=== PATIENT | male | born 1950 | race Caucasian/White ===

== ENCOUNTER → 2021-01-01 16:08 | Outpatient (ROUT) | payer MEDICARE, OTHER, SELFPAY | PROVIDERS: Family Provider Family Medicine; PCP Family Medicine; Visit Provider Family Medicine | DX: L97.529 Non-pressure chronic ulcer of other part of left foot with unspecified severity (principal) | CPT/HCPCS: 87070; 87075; 87077; 87147; 87186; 87205 ==

== ENCOUNTER → 2021-01-02 10:21 | Outpatient (CLI) | payer MEDICARE, OTHER, SELFPAY ==
--- NOTE | 2021-01-02 | DI.RAD.S_ITS ---
PROCEDURE: XR TOE LT MIN 2V INDICATIONS: LEFT GREAT TOE ULCER TECHNIQUE: 3 views of the great toe(s) acquired. COMPARISON: None. FINDINGS: Bones: No fractures or dislocations. No suspicious bony lesions. There is a soft tissue ulceration near the tip of the great toe but no underlying osteomyelitis or foreign body. Soft tissues: No suspicious soft tissue densities. IMPRESSION: Soft tissue ulceration with swelling but no osteomyelitis or foreign body found. Dictated by: Javid Alves M.D. on 01/02/2021 at 12:06 Approved by: Javid Alves M.D. on 01/02/2021 at 12:07
== END ==
PROVIDERS: Family Provider Family Medicine; PCP Family Medicine; Referring Provider Family Medicine; Visit Provider Family Medicine
DX: L97.529 Non-pressure chronic ulcer of other part of left foot with unspecified severity (principal)
CPT/HCPCS: 73660

== ENCOUNTER → 2021-02-16 13:00 | Outpatient (CLI) | payer MEDICARE, OTHER, SELFPAY | PROVIDERS: Family Provider Family Medicine; PCP Family Medicine; Referring Provider Family Medicine; Visit Provider Nurse Practitioner Family | DX: G62.0 Drug-induced polyneuropathy (principal); L97.528 Non-pressure chronic ulcer of other part of left foot with other specified severity; L84 Corns and callosities; R23.4 Changes in skin texture; E11.622 Type 2 diabetes mellitus with other skin ulcer; I87.2 Venous insufficiency (chronic) (peripheral); Z85.71 Personal history of Hodgkin lymphoma | CPT/HCPCS: 11042; 87070; 87075; 87077; 87147; 87186; 87205; 99204; 99214 ==

== ENCOUNTER → 2021-02-21 16:46 | Outpatient (CLI) | payer MEDICARE, OTHER, SELFPAY ==
--- NOTE | 2021-02-21 | DI.MRI.S_ITS ---
PROCEDURE: MR FOOT LT WO/W CON INDICATIONS: rule out Osteomyelitis TECHNIQUE: Noncontrast coronal T1 spin echo and STIR, sagittal T1 spin echo with fat saturation and STIR, axial T1 spin echo and T2 fast spin echo with fat saturation. After the administration of contrast, axial/sagittal/coronal T1 spin echo with fat saturation through the left forefoot . COMPARISON: Located Within [facility], CR, XR TOE LT MIN 2V, 01/02/2021, 10:31. FINDINGS: Image quality: Excellent. Bones: The visualized bone marrow demonstrates normal signal on all sequences. The overlying cortex appears intact. No abnormal intraosseous enhancement. No definite focal osseous destruction or loss of marrow fat signal intensity on T1 weighted pulse sequences is seen underlying the area of ulceration at the plantar aspect of the distal great toe. Diffuse midfoot joint degeneration Soft tissues: Soft tissue edema and ulcerated appearance at the plantar aspect of the distal great toe. Dorsal forefoot subcutaneous edema also noted. IMPRESSION: No definite marrow signal changes to suggest osteomyelitis, in particular in the region of the ulcerated lesion at the plantar aspect of the distal great toe. Dictated by: Lamine Meehan M.D. on 02/22/2021 at 10:04 Approved by: Lamine Meehan M.D. on 02/22/2021 at 10:16
== END ==
PROVIDERS: Family Provider Family Medicine; PCP Family Medicine; Referring Provider Nurse Practitioner Family; Visit Provider Nurse Practitioner Family
DX: L08.9 Local infection of the skin and subcutaneous tissue, unspecified (principal); L97.522 Non-pressure chronic ulcer of other part of left foot with fat layer exposed
CPT/HCPCS: 73720

== ENCOUNTER → 2021-02-23 11:07 | Outpatient (CLI) | payer MEDICARE, OTHER, SELFPAY | PROVIDERS: Family Provider Family Medicine; PCP Family Medicine; Referring Provider Family Medicine; Visit Provider Nurse Practitioner Family | DX: G62.0 Drug-induced polyneuropathy (principal); L97.522 Non-pressure chronic ulcer of other part of left foot with fat layer exposed; L08.9 Local infection of the skin and subcutaneous tissue, unspecified; Z85.72 Personal history of non-Hodgkin lymphomas | CPT/HCPCS: 11042; 99212 ==

== ENCOUNTER → 2021-03-02 10:51 | Outpatient (CLI) | payer MEDICARE, OTHER, SELFPAY | PROVIDERS: Family Provider Family Medicine; PCP Family Medicine; Referring Provider Family Medicine; Visit Provider Nurse Practitioner Family | DX: G60.3 Idiopathic progressive neuropathy (principal); L97.522 Non-pressure chronic ulcer of other part of left foot with fat layer exposed; Z85.72 Personal history of non-Hodgkin lymphomas; R79.9 Abnormal finding of blood chemistry, unspecified; G62.0 Drug-induced polyneuropathy | CPT/HCPCS: 97597; 99213 ==

== ENCOUNTER → 2021-03-09 10:22 | Outpatient (CLI) | payer MEDICARE, OTHER, SELFPAY ==
[2021-03-09 11:47] LABS: Add Manual Diff / Slide Review NO; Basophils Absolute Auto 100 /uL (0-100); Basophils Percent Auto 0.7 % (0-2); Eosinophils Absolute Auto 100 /uL (0-450); Eosinophils Percent Auto 1.9 % (2-4); Hematocrit 33.4 % (41-53); Hemoglobin 11.2 g/dL (13.5-17.5); Lymphocytes Absolute Auto 1300 /uL (1100-4500); Lymphocytes Percent Auto 18.6 % (25-40); Mean Corpuscular HGB Conc 33.6 % (30-36); Mean Corpuscular Hemoglobin 34.8 PG (26-34); Mean Corpuscular Volume 103.5 fL (80-100); Monocytes Absolute Auto 900 /uL (0-900); Monocytes Percent Auto 12.4 % (3-14); Neutrophils Absolute Auto 4700 /uL (1500-7000); Neutrophils Percent Auto 66.4 % (50-75); Platelet Count 110 X10^3/uL (150-400); Red Blood Cell Count 3.23 X10^6/uL (4.5-5.9); Red Cell Distribution Width 16.2 % (11.6-14.8); White Blood Cell Count 7.1 X10^3/uL (4.5-11.0)
[2021-03-09 12:05] LABS: Erythrocyte Sedimentation Rate 74 MM/HR (0-15)
[2021-03-09 12:22] LABS: C-Reactive Protein Quant 13.7 mg/dL (<1.0)
== END ==
PROVIDERS: Family Provider Family Medicine; PCP Family Medicine; Referring Provider Family Medicine; Visit Provider Nurse Practitioner Family
DX: R79.82 Elevated C-reactive protein (CRP) (principal); R70.0 Elevated erythrocyte sedimentation rate; L08.9 Local infection of the skin and subcutaneous tissue, unspecified
CPT/HCPCS: 36415; 85025; 85651; 86140

== ENCOUNTER → 2021-03-09 10:22 | Outpatient (CLI) | payer MEDICARE, OTHER, SELFPAY | PROVIDERS: Family Provider Family Medicine; PCP Family Medicine; Referring Provider Family Medicine; Visit Provider Nurse Practitioner Family | DX: G62.0 Drug-induced polyneuropathy (principal); L97.521 Non-pressure chronic ulcer of other part of left foot limited to breakdown of skin; L08.9 Local infection of the skin and subcutaneous tissue, unspecified; R23.4 Changes in skin texture; L84 Corns and callosities; L53.8 Other specified erythematous conditions; R79.82 Elevated C-reactive protein (CRP); R70.0 Elevated erythrocyte sedimentation rate | CPT/HCPCS: 36415; 85025; 85651; 86140; 87070; 87077; 87147; 87186; 87205; 97597; 99213 ==

== ENCOUNTER → 2021-03-16 09:34 | Outpatient (CLI) | payer MEDICARE, OTHER, SELFPAY | PROVIDERS: Family Provider Family Medicine; PCP Family Medicine; Referring Provider Family Medicine; Visit Provider Nurse Practitioner Family | DX: G62.0 Drug-induced polyneuropathy (principal); L97.521 Non-pressure chronic ulcer of other part of left foot limited to breakdown of skin; L84 Corns and callosities | CPT/HCPCS: 97597; 99213 ==

== ENCOUNTER → 2021-04-02 14:28 | Outpatient (CLI) | payer MEDICARE, OTHER, SELFPAY | PROVIDERS: Family Provider Family Medicine; PCP Family Medicine; Referring Provider Family Medicine; Visit Provider Family Medicine | DX: G60.9 Hereditary and idiopathic neuropathy, unspecified (principal); L97.522 Non-pressure chronic ulcer of other part of left foot with fat layer exposed; Z85.72 Personal history of non-Hodgkin lymphomas; R79.9 Abnormal finding of blood chemistry, unspecified; R70.0 Elevated erythrocyte sedimentation rate; R79.82 Elevated C-reactive protein (CRP) | CPT/HCPCS: 11042; 87070; 87075; 87205; 99213 ==

== ENCOUNTER → 2021-04-09 13:22 | Outpatient (CLI) | payer MEDICARE, OTHER, SELFPAY | PROVIDERS: Family Provider Family Medicine; PCP Family Medicine; Referring Provider Family Medicine; Visit Provider Family Medicine | DX: G60.9 Hereditary and idiopathic neuropathy, unspecified (principal); L97.521 Non-pressure chronic ulcer of other part of left foot limited to breakdown of skin; L08.9 Local infection of the skin and subcutaneous tissue, unspecified; Z85.72 Personal history of non-Hodgkin lymphomas | CPT/HCPCS: 11042; 36415; 85025; 85651; 86140; 99213 ==

== ENCOUNTER → 2021-04-09 14:18 | Outpatient (CLI) | payer MEDICARE, OTHER, SELFPAY ==
[2021-04-09 15:22] LABS: Add Manual Diff / Slide Review NO; Basophils Absolute Auto 100 /uL (0-100); Basophils Percent Auto 0.7 % (0-2); Eosinophils Absolute Auto 100 /uL (0-450); Eosinophils Percent Auto 1.4 % (2-4); Hematocrit 35.3 % (41-53); Hemoglobin 11.6 g/dL (13.5-17.5); Lymphocytes Absolute Auto 1600 /uL (1100-4500); Mean Corpuscular HGB Conc 32.9 % (30-36); Mean Corpuscular Hemoglobin 34.1 PG (26-34); Mean Corpuscular Volume 103.6 fL (80-100); Monocytes Absolute Auto 900 /uL (0-900); Monocytes Percent Auto 13.3 % (3-14); Neutrophils Absolute Auto 4400 /uL (1500-7000); Neutrophils Percent Auto 62.6 % (50-75); Platelet Count 122 X10^3/uL (150-400); Red Cell Distribution Width 15.1 % (11.6-14.8); White Blood Cell Count 7.1 X10^3/uL (4.5-11.0)
[2021-04-09 15:47] LABS: C-Reactive Protein Quant 6.7 mg/dL (<1.0)
[2021-04-09 16:32] LABS: Erythrocyte Sedimentation Rate 66 MM/HR (0-15)
== END ==
PROVIDERS: Family Provider Family Medicine; PCP Family Medicine; Referring Provider Family Medicine; Visit Provider Family Medicine
DX: L08.9 Local infection of the skin and subcutaneous tissue, unspecified (principal)
CPT/HCPCS: 36415; 85025; 85651; 86140

== ENCOUNTER → 2021-04-16 14:23 | Outpatient (CLI) | payer MEDICARE, OTHER, SELFPAY | PROVIDERS: Family Provider Family Medicine; PCP Family Medicine; Referring Provider Family Medicine; Visit Provider Family Medicine | DX: G60.9 Hereditary and idiopathic neuropathy, unspecified (principal); L97.526 Non-pressure chronic ulcer of other part of left foot with bone involvement without evidence of necrosis; Z85.72 Personal history of non-Hodgkin lymphomas; R79.9 Abnormal finding of blood chemistry, unspecified; R70.0 Elevated erythrocyte sedimentation rate; R79.82 Elevated C-reactive protein (CRP); D64.9 Anemia, unspecified; D69.6 Thrombocytopenia, unspecified | CPT/HCPCS: 11042; 99213 ==

== ENCOUNTER → 2021-04-17 10:31 | Outpatient (CLI) | payer MEDICARE, OTHER, SELFPAY ==
--- NOTE | 2021-04-17 | DI.RAD.S_ITS ---
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 COMPARISON: [facility], CR, XR TOE LT MIN 2V, 01/02/2021, 10:31. FINDINGS: Bones: No fractures or dislocations. No suspicious bony lesions. No erosive changes. Background osteoarthritic changes redemonstrated. Prominent plantar calcaneal enthesophyte Soft tissues: No tibiotalar joint effusion. Achilles tendon appears normal. 1st digit soft tissue swelling. IMPRESSION: Although no bony erosions are identified, plain film radiography is relatively insensitive in the acute phases of osteomyelitis and may not demonstrate radiographic changes for 15 days. If acute osteomyelitis is of clinical concern, nuclear medicine regional bone scan or MRI is recommended. Dictated by: Gerry Dubois [facility] Interpreted: John Nesbitt MD on 04/17/2021 at 11:01 Approved by: John Nesbitt M.D. on 04/17/2021 at 11:52
== END ==
PROVIDERS: Family Provider Family Medicine; PCP Family Medicine; Referring Provider Family Medicine; Visit Provider Family Medicine
DX: L97.526 Non-pressure chronic ulcer of other part of left foot with bone involvement without evidence of necrosis (principal)
CPT/HCPCS: 73630

== ENCOUNTER → 2021-04-23 13:06 | Outpatient (CLI) | payer MEDICARE, OTHER, SELFPAY | PROVIDERS: Family Provider Family Medicine; PCP Family Medicine; Referring Provider Family Medicine; Visit Provider Family Medicine | DX: G60.9 Hereditary and idiopathic neuropathy, unspecified (principal); Z85.72 Personal history of non-Hodgkin lymphomas; R79.9 Abnormal finding of blood chemistry, unspecified; R70.0 Elevated erythrocyte sedimentation rate; R79.82 Elevated C-reactive protein (CRP); D64.9 Anemia, unspecified; D69.6 Thrombocytopenia, unspecified | CPT/HCPCS: 99212; 99213 ==

== ENCOUNTER → 2021-08-21 11:55 | Outpatient (CLI) | payer MEDICARE, OTHER, SELFPAY ==
--- NOTE | 2021-08-21 11:59 | DI.RAD.S_ITS ---
PROCEDURE: XR KNEE LT 3V INDICATIONS: LEFT KNEE FEELS LIKE A PIECE OF WOOD TECHNIQUE: 3 views of the knee were acquired. COMPARISON: [facility], , KNEE 3V LEFT, 10/04/2011, 8:48. FINDINGS: Bones: No acute, displaced fracture. Moderate to advanced medial compartment arthrosis with joint space loss and osteophytosis. No suspicious bony lesions. The lateral and patellofemoral joint spaces are maintained. Osteophytosis about the tibial spines and intercondylar region. Soft tissues: Small joint effusion. No suspicious soft tissue calcifications. IMPRESSION: Medial compartment arthrosis as detailed above. Dictated by: Gus Fregoso M.D. on 08/21/2021 at 14:11 Approved by: Gus Fregoso M.D. on 08/21/2021 at 14:12
== END ==
PROVIDERS: Family Provider Family Medicine; PCP Family Medicine; Referring Provider Chiropractor; Visit Provider Chiropractor
DX: M17.12 Unilateral primary osteoarthritis, left knee (principal); M25.562 Pain in left knee
CPT/HCPCS: 73562

== ENCOUNTER 2021-09-03 20:05 | Emergency (ER) | payer MEDICARE, OTHER, SELFPAY ==
[2021-09-03 20:08] VITALS: BP 174/81; PULSE 96; RESP 16; O2SAT 97; BMI 24.7
--- NOTE | 2021-09-03 20:42 | PC.NURSE ---
Pt given marina leslie to drink in triag. states food bolus passed. advised pt to sit in WR to make sure he did not vomit. at 2019 pt alerted registration that he would like to go home. RN out to see pt who states food bolus has passed and he is feeling much better. Pt left C.
[2021-09-03 20:49] LABS: COVID19 -Nasal RAPID Negative (Negative)
== END 2021-09-03 20:20 | disposition left against medical advice (07) ==
PROVIDERS: Emergency Provider Emergency Medicine; Family Provider Family Medicine; PCP Family Medicine
DX: T18.128A Food in esophagus causing other injury, initial encounter (principal); X58.XXXA Exposure to other specified factors, initial encounter; Z20.822 Contact with and (suspected) exposure to COVID-19
CPT/HCPCS: 87635; 99281; C9803

== ENCOUNTER → 2021-09-05 14:12 | Outpatient (CLI) | payer MEDICARE, OTHER, SELFPAY ==
--- NOTE | 2021-09-05 | DI.CT.S_ITS ---
PROCEDURE: CT ABDOMEN WO/W CON INDICATIONS: ENLARGED LIVER TECHNIQUE: 4 phase scanning was performed. Non-contrast 5 mm axial sections acquired from the diaphragm to the iliac crests. Following the administration of intravenous contrast, 5 mm thick arterial-phase, portal venous-phase, and 5-minute delayed phase images were acquired through the liver. 5 mm thick coronal and sagittal reformats were performed. For radiation dose reduction, the following was used: automated exposure control, adjustment of mA and/or kV according to patient size. COMPARISON: [place], PET/CT SKULL BASE TO MID THIGH, 01/04/2011, 9:26. [facility], CT, CHEST/ABD/PEL WITH CONTRAST, 02/12/2013, 10:40. FINDINGS: Image quality: Excellent. Lung bases: There are bilateral pleural effusions, small to moderate on the right and small on the left. Multiple small indistinct ground-glass nodules are demonstrated within the right middle and lower lobes. Mild posterior atelectasis demonstrated within the left lower lobe. Heart size is normal. Liver: Innumerable small hypoattenuating mass lesions are demonstrated throughout the liver with associated peripheral mildly hypervascular enhancement on the arterial phase following contrast administration. These demonstrate isoattenuating peripheral enhancement on the portal venous and delayed phases. The findings are consistent with metastatic disease. Other solid organs: Gallbladder appears within normal limits without calcified gallstones. Biliary system is non dilated. The spleen is normal in size. No adrenal nodules. Kidneys demonstrate no hydronephrosis. There is an oval mass arising from the distal pancreatic tail measuring approximately 4.3 x 5.3 cm in transverse dimension by 4.1 cm in craniocaudal dimension. This demonstrates hypoenhancement on the arterial phase with subsequent isoenhancing mint on the portal venous and delayed phases. The mass extends to the spleen with suspected early splenic invasion. The mass also extends to the left kidney with left renal invasion not excluded. The mass demonstrates encasement of the left splenic artery with associated segmental narrowing. There is also suspected encasement of the left splenic vein which is not well visualized. Nodes and vessels: No retroperitoneal or mesenteric adenopathy by size criteria. Aorta and inferior vena cava are normal in size. Bowel and peritoneum: Visualized bowel loops are normal in caliber. There is trace fruit in the left pericolic gutter. No free air. Bones: No suspicious bony lesions. No vertebral body compression fractures. Miscellaneous: No ventral hernias. IMPRESSION: 1. Innumerable peripherally enhancing mass lesions demonstrated throughout the liver consistent with metastatic disease. 2. Large irregular exophytic mass arising from the distal pancreatic tail highly suspicious for pancreatic adenocarcinoma. There is extension to the spleen and left kidney with suspected early invasion. There is also encasement of the left splenic artery with associated segmental narrowing as well as suspected encasement of the left splenic vein. 3. Bilateral pleural effusions, small to moderate on the right and small on the left. 4. Numerous small clustered ground-glass nodules within the right middle and lower lobes. The findings are suggestive of an infectious or inflammatory process given the indistinct margins. However, the differential includes metastatic disease. Recommend dedicated chest CT for further evaluation. Dictated by: Ra Yuen M.D. on 09/05/2021 at 16:57 Approved by: Ra Yuen M.D. on 09/05/2021 at 17:07
== END ==
PROVIDERS: Family Provider Family Medicine; PCP Family Medicine; Referring Provider Family Medicine; Visit Provider Family Medicine
DX: R16.0 Hepatomegaly, not elsewhere classified (principal); K86.9 Disease of pancreas, unspecified; J90 Pleural effusion, not elsewhere classified; R91.8 Other nonspecific abnormal finding of lung field
CPT/HCPCS: 74170; Q9967

== ENCOUNTER → 2021-09-11 15:36 | Outpatient (CLI) | payer MEDICARE, OTHER, SELFPAY ==
--- NOTE | 2021-09-11 | DI.CT.S_ITS ---
PROCEDURE: CT CHEST W CON INDICATIONS: Malignant neoplasm of tail of pancreas TECHNIQUE: After the administration of intravenous contrast, 5 mm thick sections acquired from the pulmonary apices to the posterior costophrenic angles. 1 mm axial lung, 5 mm thick coronal and sagittal reformats and 7 mm axial MIP were acquired. For radiation dose reduction, the following was used: automated exposure control, adjustment of mA and/or kV according to patient size. COMPARISON: [facility], CT, CT ABDOMEN WO/W CON, 09/05/2021, 14:16. [facility], CT, CHEST/ABD/PEL WITH CONTRAST, 02/12/2013, 10:40. FINDINGS: Image quality: Excellent. Lungs and pleura: Mild diffuse bronchial wall thickening. Small left perihilar ground-glass opacity. There are dependent gravitational changes posteriorly in both lungs, particularly in the costophrenic sulci and small to moderate freely layering dependent bilateral pleural effusions. Nonspecific 2 mm subpleural left lateral lower lobe lung nodule. Otherwise no suspicious nodules or masses in the lungs. Mediastinum: Calcified high pretracheal lymph node. Centrally calcified precarinal lymph node. Noncalcified mild bilateral hilar adenopathy and calcified small AP window lymph node. The heart is mildly enlarged. No pericardial effusion. Mild coronary artery calcification. Thoracic aorta and central pulmonary arteries are normal in size. Esophagus is normal in caliber. No hiatal hernia. Bones and chest wall: No suspicious bony lesions. No vertebral body compression fractures. No axillary or supraclavicular adenopathy by size criteria. Thyroid gland demonstrates asymmetric enlargement of the right lobe with heterogeneous nodularity of the right lobe and isthmus. . Abdomen: The upper abdomen demonstrates hepatic enlargement and innumerable hepatic hypodensities. Trace perihepatic ascites is present. IMPRESSION: 1. Small to moderate, right greater than left bilateral pleural effusions and small bibasilar dependent ground-glass opacities, possibly atelectatic versus infectious/inflammatory. 2. Tiny nonspecific left central perihilar ground-glass opacity, possibly pulmonary edema. 3. Calcified mediastinal lymph nodes, chronic. 4. Mild diffuse bronchitis. 5. Findings in the upper abdomen concerning for hepatic metastatic disease as seen on recent CT abdomen. 6. The right thyroid gland enlargement and stable thyroid isthmus nodule. If this would be clinically relevant for the patient, consider thyroid ultrasound for evaluation. Dictated by: Supriya Castillo M.D. on 09/11/2021 at 17:18 Approved by: Supriya Castillo M.D. on 09/11/2021 at 17:36
== END ==
PROVIDERS: PCP Family Medicine; Referring Provider Family Medicine; Visit Provider Family Medicine
DX: J90 Pleural effusion, not elsewhere classified (principal); C25.2 Malignant neoplasm of tail of pancreas; C78.00 Secondary malignant neoplasm of unspecified lung; J40 Bronchitis, not specified as acute or chronic; K76.9 Liver disease, unspecified; E04.9 Nontoxic goiter, unspecified; I89.8 Other specified noninfective disorders of lymphatic vessels and lymph nodes
CPT/HCPCS: 71260; Q9967

== ENCOUNTER → 2021-09-24 12:42 | Outpatient (CLI) | payer MEDICARE, OTHER, SELFPAY ==
--- NOTE | 2021-09-24 12:44 | DI.RAD.S_ITS ---
PROCEDURE: XR CHEST 2V INDICATIONS: COUGH TECHNIQUE: 2 views of the chest were acquired. COMPARISON: [facility], CT, CT CHEST W CON, 09/11/2021, 15:56. FINDINGS: Surgical changes and devices: None. Lungs and pleura: There is a scattered appearance of interstitial prominence within the lungs bilaterally. Mediastinum: Mediastinal contours are normal. Heart size is normal. Bones and chest wall: No suspicious bony abnormalities. Soft tissues appear unremarkable. IMPRESSION: Mild scattered interstitial prominence which could represent airspace disease such as pneumonia versus edema. Dictated by: Olga Chan M.D. on 09/24/2021 at 13:27 Approved by: Olga Chan M.D. on 09/24/2021 at 13:28
== END ==
PROVIDERS: PCP Family Medicine; Referring Provider Family Medicine; Visit Provider Family Medicine
DX: R05.9 Cough, unspecified (principal)
CPT/HCPCS: 71046

== ENCOUNTER → 2022-02-25 10:36 | Outpatient (ROUT) | payer OTHER, MEDICARE, SELFPAY ==
[2022-02-25 10:51] LABS: Add Manual Diff / Slide Review NO; Basophils Absolute Auto 100 /uL (0-100); Basophils Percent Auto 1.7 % (0-2); Eosinophils Absolute Auto 100 /uL (0-450); Hematocrit 25.6 % (41-53); Hemoglobin 8.7 g/dL (13.5-17.5); Lymphocytes Absolute Auto 800 /uL (1100-4500); Lymphocytes Percent Auto 11.3 % (25-40); Mean Corpuscular HGB Conc 33.7 % (30-36); Mean Corpuscular Hemoglobin 34.8 PG (26-34); Monocytes Absolute Auto 800 /uL (0-900); Monocytes Percent Auto 10.6 % (3-14); Neutrophils Absolute Auto 5300 /uL (1500-7000); Neutrophils Percent Auto 74.4 % (50-75); Platelet Count 102 X10^3/uL (150-400); Red Blood Cell Count 2.49 X10^6/uL (4.5-5.9); Red Cell Distribution Width 17.5 % (11.6-14.8); White Blood Cell Count 7.1 X10^3/uL (4.5-11.0)
[2022-02-25 11:19] LABS: BUN Creatinine Ratio 23.8 (6-22); Blood Urea Nitrogen 15 mg/dL (9-20); Calcium 8.5 mg/dL (8.4-10.2); Carbon Dioxide 22 mmol/L (22-32); Chloride 107 mmol/L (98-107); Estimated Glomerular Filt Rate > 60 mL/min (>60); Glucose 169 mg/dL (80-110); HEMOLYSIS < 15 (0-50); Potassium 3.9 mmol/L (3.4-5.1); Sodium 137 mmol/L (137-145)
== END ==
PROVIDERS: PCP Family Medicine; Visit Provider Family Medicine
DX: Z13.9 Encounter for screening, unspecified (principal)
CPT/HCPCS: 80048; 85025